=== PATIENT | male | born 1965 | race Caucasian/White ===

== ENCOUNTER 2017-05-17 12:04 | Emergency (ER) | payer SELFPAY ==
[~2017-05-17] VITALS: Ht 165.1 cm; Wt 45.5 kg
[2017-05-17 12:22] VITALS: BP 176/87; PULSE 93; RESP 18; TEMP 98.7; O2SAT 100
[2017-05-17] MEDS ORDERED: FOLI800T PO (12:33)
[2017-05-17] MEDS ORDERED: METF500T PO (12:33)
[2017-05-17] MEDS ORDERED: ATOR40TA16 PO (12:33)
--- NOTE | 2017-05-17 12:50 | PD ---
HPI Chief Complaint: Medical Clearance Time Seen by Provider: 12:47 Travel History International Travel<30 days: No Contact w/Intl Traveler<30days: No Traveled to known affect area: No History of Present Illness HPI This is a 51-year-old male who presents for evaluation. Apparently he went to [facility] today in order to request help with detoxification from alcohol and he was sent here with the vague instruction that he required medical clearance. He has no acute medical issue that he is complaining about. He would like to go back to detoxification. He has a history of diabetes and hypertension. He takes metformin on a daily basis. Blood sugars 212. Compliant with medication. No other complaints. PFSH Social History Alcohol Use: Yes Tobacco Use: Yes Allergies-Medications Reported Meds & Prescriptions Reported Meds & Active Scripts Active Reported Metformin (Metformin HCl) 500 Mg Tab 500 Mg PO TIDPC Atorvastatin (Atorvastatin Calcium) 40 Mg Tab 40 Mg PO HS Folic Acid 0.8 Mg Tab 1,000 Mcg PO DAILY Review of Systems Except as stated in HPI: all other systems reviewed are Neg Physical Exam Narrative GENERAL: Well-nourished male in no acute distress SKIN: Warm and dry. HEAD: Atraumatic. Normocephalic. EYES: Pupils equal and round. No scleral icterus. No injection or drainage. ENT: No nasal bleeding or discharge. Mucous membranes pink and moist. NECK: Trachea midline. No JVD. CARDIOVASCULAR: Regular rate and rhythm. No murmur appreciated. RESPIRATORY: No accessory muscle use. Clear to auscultation. Breath sounds equal bilaterally. Data Data Last Documented VS Vital Signs Date Time Temp Pulse Resp B/P (MAP) Pulse Ox O2 Delivery O2 Flow Rate FiO2 05/17/17 12:22 98.7 93 18 176/87 (116) 100 [facility] Medical Decision Making Medical Screen Exam Complete: Yes Emergency Medical Condition: Yes Medical Record Reviewed: Yes Differential Diagnosis Alcoholism, alcohol withdrawal, diabetes Narrative Course The patient is stable for discharge. Diagnosis Primary Impression: Alcoholism Additional Instructions: Return to [place] to discuss alcohol detoxification. Med/Other Pt SpecificInfo: No Change to Meds Disposition: 01 DISCHARGE HOME Condition: Stable Venkata Johnson May 17, 2017 12:50
== END 2017-05-17 13:07 | disposition short-term general hospital (02) ==
LOC: NEPK 12:04
DX: F10.20 Alcohol dependence, uncomplicated (principal); E11.9 Type 2 diabetes mellitus without complications; Z72.0 Tobacco use; Z79.84 Long term (current) use of oral hypoglycemic drugs
CPT/HCPCS: 99281